=== PATIENT | female | born 1970 | race Caucasian/White ===

== ENCOUNTER 2016-08-30 18:19 | Emergency (ER) | payer BC | END 2016-08-30 18:52 | disposition home or self-care (01) | LOC: ER 18:19 | DX: L55.9 Sunburn, unspecified (principal); J45.909 Unspecified asthma, uncomplicated; K21.9 Gastro-esophageal reflux disease without esophagitis; G43.909 Migraine, unspecified, not intractable, without status migrainosus; Z88.5 Allergy status to narcotic agent | CPT/HCPCS: 96372; J1885 ==